=== PATIENT | female | born 1935 | race Caucasian/White ===

== ENCOUNTER 2019-02-21 01:46 | Inpatient (IN) ==
[2019-02-21 02:04] LABS: Basophils # 0.1 K/mm3 (0-0.2); Basophils % 0.2 % (0.1-2.0); Hematocrit 33.3 % (37.0-47.0); Hemoglobin 10.2 g/dL (12.2-16.2); Mean Corpuscular HGB Conc 30.7 g/dL (31.8-35.4); Mean Corpuscular Volume 89.6 fl (81-99); Mean Platelet Volume 7.6 fl (7.4-10.4); Monocytes # 1.1 K/mm3 (0.1-1.0); Monocytes % 3.7 % (1.7-9.3); Neutrophils # 25.8 K/mm3 (1.8-7.8); Platelet Count 403 K/mm3 (142-424); Red Blood Count 3.71 M/mm3 (4.20-5.40); Red Cell Distribution Width 14.6 % (11.5-17.5)
[2019-02-21 02:21] LABS: Alanine Aminotransferase 12 U/L (12-78); Albumin Level 2.1 gm/dL (3.4-5.0); Albumin/Globulin Ratio 0.4 (1.1-1.8); Alkaline Phosphatase 128 U/L (46-116); Anion Gap 16.7 mEq/L (5-15); Aspartate Amino Transferase 17 U/L (15-37); Bilirubin,Total 0.6 mg/dL (0.2-1.0); Blood Urea Nitrogen 27 mg/dL (7-18); Calcium 8.9 mg/dL (8.5-10.1); Carbon Dioxide 24 mmol/L (21.0-32.0); Chloride 94 mmol/L (98-107); Creatine Kinase 40 U/L (26-192); Globulin 4.9 gm/dl (1.3-3.2); Glucose 127 mg/dL (74-106); Sodium 131 mmol/L (136-145)
[2019-02-21 02:28] LABS: Microscopic, Urine URINE MICROSCOPIC (MICROSCOPIC)
[2019-02-21 02:29] LABS: C-Reactive Protein 33.6 mg/dL (0.0-0.9)
[2019-02-21 02:29] LABS: Appearance,Urine CLOUDY (Clear); Bilirubin,Urine Negative (Negative); Blood, Urine 3+ (Negative); Color,Urine YELLOW (Yellow); Glucose,Urine (UA) Negative (Negative); Ketones,Urine Negative (Negative); Leukocyte Esterase,Urine TRACE (Negative); Protein,Urine 2+ (Negative); Specific Gravity, Urine 1.025 (1.005-1.030)
[2019-02-21 02:32] LABS: Bacteria,Urine 4+ /lpf
--- NOTE | 2019-02-21 03:25 | Emergency Department Note ---
ED Disposition Clinical Impression: CKD (chronic kidney disease) stage 3, GFR 30-59 ml/min, Elevated erythrocyte sedimentation rate UTI (urinary tract infection) Qualifiers: Urinary tract infection type: site unspecified Hematuria presence: without hematuria Qualified Code(s): N39.0 - Urinary tract infection, site not specified Anemia Qualifiers: Anemia type: unspecified type Qualified Code(s): D64.9 - Anemia, unspecified Disposition: Admitted as Observation Condition on Discharge: Fair Referrals: Emir Maxwell MD [Primary Care Provider] - - Critical Care Critical Care Time: No Attestation: On 02/21/19, the high probability of a clinically significant, sudden or life threatening deterioration of the following system(s) required my full and direct attention, intervention and personal management. The time I documented below is in addition to time spent performing reported procedures but includes the following listed in this critical care notation. Medical Decision Making - Medical Records Medical records reviewed: Yes: I reviewed the patient's medical records. - Freedom Inquiry Pt receiving controlled substance: No Vital Signs: 02/21/19 01:46 02/21/19 02:14 02/21/19 03:13 Temperature 101.0 F H 103.5 F H Temperature Source Oral Rectal Pulse Rate [Right Radial] 101 H 93 H Respiratory Rate 20 18 Blood Pressure [Right Arm] 121/59 L 130/73 Blood Pressure Mean [Right Arm] 79 92 02 Sat by Pulse Oximetry 91 L 91 L Oxygen Delivery Method Room Air Room Air - Lab Data Lab results reviewed: Yes: I reviewed the patient's lab results. Lab Results 02/21/19 01:40: WBC 30.0 H*, RBC 3.71 L, Hgb 10.2 L, Hct 33.3 L, MCV 89.6, MCH 27.6, MCHC 30.7 L, RDW 14.6, Plt Count 403, MPV 7.6, Neut % (Auto) 86.0 H, Lymph % (Auto) 10.0, Pratt % (Auto) 3.7, Eos % (Auto) 0.0 L, Baso % (Auto) 0.2, Neut # (Auto) 25.8 H, Lymph # (Auto) 3.0, Pratt # (Auto) 1.1 H, Eos # (Auto) 0.0, Baso # (Auto) 0.1, Total Counted 100, Neutrophils % (Manual) 77 H, Band Neutrophils % 12.0 H, Lymphocytes % (Manual) 10, Monocytes % (Manual) 1 L, Platelet Estimate Normal, Hypochromasia 1+ 02/21/19 01:40: Sodium 131 L, Potassium 3.7, Chloride 94 L, Carbon Dioxide 24, Anion Gap 16.7 H, BUN 27 H, Creatinine 1.48 H, Estimated Creat Clear 28, Estimated GFR 33 L, Est GFR ( Amer) 40 L, Glucose 127 H, Calcium 8.9, Total Bilirubin 0.6, AST 17, ALT 12, Alkaline Phosphatase 128 H, Total Creatine Kinase 40, Troponin I < 0.02, C-Reactive Protein 33.6 H, Total Protein 7.0, Alb umin 2.1 L, Globulin 4.9 H, Albumin/Globulin Ratio 0.4 L 02/21/19 01:40: ESR > 140 H 02/21/19 02:06: Lactate 1.6 02/21/19 02:18: Urine Color Yellow, Urine Appearance Cloudy, Urine pH 6.0, Ur Specific [place] 1.025, Urine Protein 2+, Urine Glucose (UA) Negative, Urine Ketones Negative, Urine Blood 3+, Urine Nitrate Positive, Urine Bilirubin Negative, Urine Urobilinogen 1.0, Ur Leukocyte Esterase Trace, Urine WBC 3-5, Ur Squamous Epith Cells 3-5, Urine Bacteria 4+, Coarse Granular Casts 3-5 Result diagrams: 02/21/19 01:40 02/21/19 01:40 Orders (Tests/Meds): ED MEDICATIONS Generic Name Dose Route Start Last Admin Trade Name Freq PRN Reason Stop Dose Admin Sodium Chloride 1,000 mls @ 999 mls/hr 02/21/19 02:00 02/21/19 03:11 Sod Chlor 0.9% 1000ml Bag IV 02/21/19 03:00 999 mls/hr .Q1H1M IOANA Administration Ceftriaxone Sodium 1 gm/ 50 mls @ 100 mls/hr 02/21/19 03:30 02/21/19 03:24 Sodium Chloride IV 03/07/19 03:29 100 mls/hr Q24H IOANA Administration Protocol Discontinued Medications Generic Name Dose Route Start Last Admin Trade Name Freq PRN Reason Stop Dose Admin Acetaminophen 1,000 mg 02/21/19 01:55 02/21/19 02:23 Tylenol 500mg Tablet PO 02/21/19 01:56 1,000 mg ONCE ONE Administration ORDERS Category Date Time Status CT cervical spine wo con Stat Cat Scan 02/21/19 01:[address] head/brain wo con Stat Cat Scan 02/21/19 01:55 Taken XR chest portable Stat Exams 02/21/19 01:55 Taken XR pelvis 1-2V Stat Exams 02/21/19 01:55 Taken Blood Culture Stat Micro 02/21/19 02:06 Received Urine Culture Stat Micro 02/21/19 02:18 Received - Radiology Data #1 Image(s): Chest, Pelvis Image Reviewed: Yes I reviewed the patient's radiology image Preliminary Findings: Abnormal (possible pelvic fx ) - CT Data CT Scan: Head, C-Spine Time Received: 03:[address] Reviewed: Yes: I have viewed the radiologist's interpretation Preliminary Findings: No Fracture Seen Fever HPI - General Chief Complaint: Fever Stated Complaint: fever Time Seen by Provider: 02/21/19 02:00 Mode of Arrival: EMS Source of Information: Patient, Spouse, EMS, Medical Record Limitations: Physical Limitations Description of Symptoms (Recalled from ER Triage Doc. by RN): pt presents to ed with c/o fever and generalized weakness. ems responded to call at home this morning because patient had a fall, the assisted patient to chair and patient has not moved from the chair for 18 hours. pt also c/o "stiff neck." - History of Present Illness HPI Narrative: pt with fever and weakness which has progressed today - had fall earlier today - no cough or abd pain MD complaint: fever, weakness Onset (ago): day(s) Associated symptoms: denies other symptoms Treatments prior to arrival fever: none - Related Data Home Medications Medication Instructions Recorded Confirmed Aspirin [Ecotrin] 325 mg PO DAILY 10/31/18 02/21/19 Cholecalciferol (Vitamin D3) 1,000 unit PO DAILY 10/31/18 02/21/19 [Vitamin D3 1,000 Unit Cap] Metoprolol Succinate 25 mg PO BID 10/31/18 02/21/19 Omeprazole [Omeprazole 20mg 20 mg PO DAILY 10/31/18 02/21/19 Capsule] milk thistle 150 mg capsule 175 mg PO BID 11/01/18 02/21/19 Ascorbate Calcium [Vitamin C] 500 mg PO DAILY 01/08/19 02/21/19 Ferrous Sulfate [Ferrous Sulfate 325 mg PO DAILY 01/08/19 02/21/19 325mg Tablet] Gabapentin [Gabapentin 100mg Cap] 200 mg PO QHS 01/08/19 02/21/19 Lisinopril [Lisinopril 5mg 5 mg PO DAILY 01/08/19 02/21/19 Tablet] Fluticasone Propionate [Flonase 1 spray INTRANASAL DAILY 02/21/19 02/21/19 Allergy Relief NS] Allergies Allergy/AdvReac Type Severity Reaction Status Date / Time acetaminophen Allergy Severe Anaphylaxis Verified 02/21/19 01:54 [From Darvocet-N] propoxyphene Allergy Severe Anaphylaxis Verified 02/21/19 01:54 [From Darvocet-N] NSAIDS (Non-Steroidal AdvReac Verified 02/21/19 01:54 Anti-Inflamma [facility] History - Hepatitis A Screen Drug use history?: No High risk sexual behaviors?: No History of sexually transmitted infection?: No Currently employed?: No Childcare worker?: No Do you have indoor plumbing?: Yes Do you have electricity?: Yes Attestation statement:: This patient has been screened for Hepatitis A risk factors. I have reviewed the patient's past medical history: Yes Medical History: Reports:: Diabetes Mellitus Type 2, Gastroesophageal Reflux Disease(GERD), Hypertension Denies:: Cancer, Internal Pacemaker, MRSA, Pulmonary Embolism, Seizures, Transient Ischemic Attacks (TIA) Other Medical History: Reports: Arthritis. Denies: Blood Transfusion Reaction Laterality Cases: Right: Arthroscopy Hip, Total Hip Replacement, Bilateral: Arthroscopy Knee Other Surgeries: Yes: Tubal Ligation. No: Pacemaker Amputation: Yes Fractures: Yes (rt arm) Comment: left arm surgery,fx nose - Social History Smoking Status: Never smoker Alcohol Intake: never Substance Use Type: denies use Occupational Status: retired Housing: house Household Members: spouse Family Hx:: Diabetes, Heart Attack, Stroke, Hypertension ROS Obtained: Yes All systems reviewed & no additional complaints - Constitutional Constitutional: Reports fever(s), Reports weakness - Eyes Eyes: Denies change in vision - ENT Ears, Nose, Mouth, and Throat: Denies sore throat - Cardiovascular Cardiovascular: Denies chest pain - Respiratory Respiratory: No cough - Gastrointestinal Gastrointestingal: Denies: abdominal pain - Genitourinary Female Genitourinary: Denies hematuria - Musculoskeletal Musculoskeletal: Denies joint pain, Denies joint swelling - Integumentary/Breasts Skin/Breast: Denies rash - Neurologic Neurologic: Reports as per HPI, Denies focal weakness, Reports frequent falls, Denies seizure-like activity Physical Exam - General General appearance: alert - Head Head exam: normocephalic - Eye Eye exam: Present: PERRL, EOMI. Absent: scleral icterus - ENT ENT exam: Present: mucous membranes dry - Neck Neck exam: Present: trachea midline. Absent: full ROM, meningismus - Respiratory Respiratory exam: Present: other (dec bs bilat ). Absent: respiratory distress - Cardiovascular Cardiovascular exam: Present: regular rate, systolic murmur, +S4 - Abdominal Exam Abdominal exam: Present: soft. Absent: tenderness - Extremities Exam Extremities exam: Present: pedal edema. Absent: calf tenderness - Back Exam Back exam: Present: other (pelvis stable ) - Neurological Exam Neurological exam: Present: alert, CN II-XII intact - Psychiatric Psychiatric exam: Present: normal affect - Skin Skin exam: Absent: rash
[2019-02-21 03:30] LABS: Hypochromasia 1+; Lymphocytes % 10 % (10-50); Monocytes % 1 % (2-9); Neutrophils % 77 % (42-76); Total Cells Counted 100
[2019-02-21 05:50] LABS: Basophils % 0.1 % (0.1-2.0); Eosinophils % 0.1 % (0.1-12.0); Hemoglobin 9.4 g/dL (12.2-16.2); Lymphocytes # 2.2 K/mm3 (0.7-4.5); Lymphocytes % 8.4 % (10-50); Mean Corpuscular HGB Conc 31.3 g/dL (31.8-35.4); Mean Corpuscular Volume 89.6 fl (81-99); Mean Platelet Volume 8.3 fl (7.4-10.4); Monocytes # 1.3 K/mm3 (0.1-1.0); Monocytes % 4.9 % (1.7-9.3); Neutrophils # 23.1 K/mm3 (1.8-7.8); Neutrophils % 86.5 % (37.0-80.0); Platelet Count 355 K/mm3 (142-424); Red Blood Count 3.34 M/mm3 (4.20-5.40); Red Cell Distribution Width 14.7 % (11.5-17.5)
[2019-02-21 05:51] LABS: Hematocrit 29.9 % (37.0-47.0); White Blood Count 26.7 K/mm3 (4.8-10.8)
[2019-02-21 05:57] LABS: Anion Gap 16.8 mEq/L (5-15); Calcium 8.5 mg/dL (8.5-10.1)
--- NOTE | 2019-02-21 07:44 | Pharmacy Consult Notes ---
[facility] Pharmacy VTE Monitoring - Patient Demographics Admission date: 02/21/19 Report Date: 02/21/19 Time: 07:43 Allergies/Adverse Reactions: Patient Allergies acetaminophen [From Darvocet-N] Allergy (Severe, Verified 02/21/19 01:54) Anaphylaxis propoxyphene [From Darvocet-N] Allergy (Severe, Verified 02/21/19 01:54) Anaphylaxis NSAIDS (Non-Steroidal Anti-Inflamma Adverse Reaction (Verified 02/21/19 01:54) Height: 1.57 m Weight: 64.495 kg Patient Problems: Current Active Problems UTI (urinary tract infection) (Acute) Elevated erythrocyte sedimentation rate (Acute) Anemia (Acute) CKD (chronic kidney disease) stage 3, GFR 30-59 ml/min (Acute) - VTE Risk Labs: VTE Related Lab Results Hgb 9.4 g/dL (12.2-16.2) L 02/21/19 05:40 Hct 29.9 % (37.0-47.0) L 02/21/19 05:40 Plt Count 355 K/mm3 (142-424) 02/21/19 05:40 BUN 27 mg/dL (7-18) H 02/21/19 05:40 Creatinine 1.39 mg/dL (0.55-1.02) H 02/21/19 05:40 Estimated Creat Clear 30 mL/min (50-200) 02/21/19 05:40 VTE Score: 6 VTE Risk Level: Moderate Risk - Prophylaxis VTE Prophylaxis Ordered?: Yes Types of VTE Prophylaxis: TEDS Knee High Location of Applied Device: Bilateral Lower Extremeties - VTE Diagnosis Confirmed Treatment or plan recommended: Continue Current Treatment
--- NOTE | 2019-02-21 08:55 | History & Physical Report ---
*Admission Date: 02/21/19 *Chief complaint: fever *History of present illness: this wf with altered mental status and inc weakness and dec mobility with dec po intake dev fever and was brought to ed for evaal -pt was found to have uti and sirs and was admitted for ivf and abx - cultures pending - also pt has element of delerium as she is confused and dec mobility - [facility] History I have reviewed the patient's past medical history: Yes Medical History: Reports:: Diabetes Mellitus Type 2, Gastroesophageal Reflux Disease(GERD), Hypertension Denies:: Cancer, Internal Pacemaker, MRSA, Pulmonary Embolism, Seizures, Transient Ischemic Attacks (TIA) *Have you ever received a pneumonia vaccine?: Yes *Have you received a flu vaccine this season?: Yes Other Medical History: Reports: Arthritis. Denies: Blood Transfusion Reaction Laterality Cases: Right: Arthroscopy Hip, Total Hip Replacement, Bilateral: Arthroscopy Knee Other Surgeries: Yes: Tubal Ligation. No: Pacemaker Amputation: Yes Fractures: Yes (left arm) - *Social History Educational Level: Attended High School Smoking Status: Never smoker Alcohol Intake: never Substance Use Type: denies use *Occupational Status:: retired Housing: house Household Members: spouse *Travel in the last 8 weeks: None - Psychiatric History Expresses thoughts of harming self/others: None Suicide Plan Description: No Plan Family Hx:: Diabetes, Heart Attack, Stroke, Hypertension Review of Systems - Review of Systems Review of systems:: pertinent systems reviewed and negative unless documented below - Constitutional Reports fatigue, Reports fever(s), Reports weakness - Eyes Denies change in vision - ENT Reports dry mouth - *Cardiovascular Denies chest pain at rest - *Respiratory Denies cough - *Gastrointestinal Denies abdominal pain - *Genitourinary Denies blood in urine - *Musculoskeletal Reports joint pain, Reports neck pain, Denies joint swelling - Integumentary/Breasts Denies rash - *Neurologic Reports frequent falls, Reports weakness, Denies localized weakness, Denies seizure-like activity Meds Home Medications Medication Instructions Recorded Confirmed Type Aspirin [Ecotrin] 81 mg PO DAILY 10/31/18 02/21/19 History Cholecalciferol (Vitamin D3) 2,000 unit PO DAILY 10/31/18 02/21/19 History [Vitamin D3 1,000 Unit Cap] Metoprolol Succinate 25 mg PO BID 10/31/18 02/21/19 History Omeprazole [Omeprazole 20mg 20 mg PO DAILY 10/31/18 02/21/19 History Capsule] milk thistle 150 mg capsule 150 mg PO DAILY 11/01/18 02/21/19 History Ascorbate Calcium [Vitamin C] 500 mg PO DAILY 01/08/19 02/21/19 History Ferrous Sulfate [Ferrous Sulfate 325 mg PO DAILY 01/08/19 02/21/19 History 325mg Tablet] Gabapentin [Gabapentin 100mg Cap] 200 mg PO HS 01/08/19 02/21/19 History Lisinopril [Lisinopril 5mg 5 mg PO DAILY 01/08/19 02/21/19 History Tablet] Biotin 1 mg PO DAILY 02/21/19 02/21/19 History Fluticasone Propionate [Flonase 1 spray INTRANASAL DAILY 02/21/19 02/21/19 History Allergy Relief NS] Meloxicam 7.5 mg PO DIRECTED 02/21/19 02/21/19 History Non Formulary [Pt's Own Medication] 1 each PO DAILY 02/21/19 02/21/19 History Allergies Allergy/AdvReac Type Severity Reaction Status Date / Time acetaminophen Allergy Severe Anaphylaxis Verified 02/21/19 01:54 [From Darvocet-N] propoxyphene Allergy Severe Anaphylaxis Verified 02/21/19 01:54 [From Darvocet-N] NSAIDS (Non-Steroidal AdvReac Verified 02/21/19 01:54 Anti-Inflamma Exam Vital signs and Labs for Last 24 Hours: Temp Pulse Resp BP Pulse Ox 98.0 F 91 H 18 111/59 L 94 L 02/21/19 07:56 02/21/19 07:56 02/21/19 07:56 02/21/19 07:56 02/21/19 07:56 Laboratory Results - last 24 hr 02/21/19 01:40: WBC 30.0 H*, RBC 3.71 L, Hgb 10.2 L, Hct 33.3 L, MCV 89.6, MCH 27.6, MCHC 30.7 L, RDW 14.6, Plt Count 403, MPV 7.6, Neut % (Auto) 86.0 H, Lymph % (Auto) 10.0, Josephine % (Auto) 3.7, Eos % (Auto) 0.0 L, Baso % (Auto) 0.2, Neut # (Auto) 25.8 H, Lymph # (Auto) 3.0, Josephine # (Auto) 1.1 H, Eos # (Auto) 0.0, Baso # (Auto) 0.1, Total Counted 100, Neutrophils % (Manual) 77 H, Band Neutrophils % 12.0 H, Lymphocytes % (Manual) 10, Monocytes % (Manual) 1 L, Platelet Estimate Normal, Hypochromasia 1+ 02/21/19 01:40: Sodium 131 L, Potassium 3.7, Chloride 94 L, Carbon Dioxide 24, Anion Gap 16.7 H, BUN 27 H, Creatinine 1.48 H, Estimated Creat Clear 28, Estimated GFR 33 L, Est GFR ( Amer) 40 L, Glucose 127 H, Calcium 8.9, Total Bilirubin 0.6, AST 17, ALT 12, Alkaline Phosphatase 128 H, Total Creatine Kinase 40, Troponin I < 0.02, C-Reactive Protein 33.6 H, Total Protein 7.0, Albumin 2.1 L, Globulin 4.9 H, Albumin/Globulin Ratio 0.4 L 02/21/19 01:40: ESR > 140 H 02/21/19 02:06: Lactate 1.6 02/21/19 02:18: Urine Color Yellow, Urine Appearance Cloudy, Urine pH 6.0, Ur Specific [place] 1.025, Urine Protein 2+, Urine Glucose (UA) Negative, Urine Ketones Negative, Urine Blood 3+, Urine Nitrate Positive, Urine Bilirubin Negative, Urine Urobilinogen 1.0, Ur Leukocyte Esterase Trace, Urine WBC 3-5, Ur Squamous Epith Cells 3-5, Urine Bacteria 4+, Coarse Granular Casts 3-5 02/21/19 05:40: WBC 26.7 H*, RBC 3.34 L, Hgb 9.4 L, Hct 29.9 L, MCV 89.6, MCH 28.1, MCHC 31.3 L, RDW 14.7, Plt Count 355, MPV 8.3, Neut % (Auto) 86.5 H, Lymph % (Auto) 8.4 L, Josephine % (Auto) 4.9, Eos % (Auto) 0.1, Baso % (Auto) 0.1, Neut # (Auto) 23.1 H, Lymph # (Auto) 2.2, Josephine # (Auto) 1.3 H, Eos # (Auto) 0.0, Baso # (Auto) 0.0 02/21/19 05:40: Sodium 133 L, Potassium 3.8, Chloride 98, Carbon Dioxide 22, Anion Gap 16.8 H, BUN 27 H, Creatinine 1.39 H, Estimated Creat Clear 30, Estimated GFR 36 L, Est GFR ( Amer) 43 L, Glucose 136 H, Calcium 8.5 I & O for Last 24 hours: Intake & Output 02/18/19 02/19/19 02/20/19 02/21/19 11:59 11:59 11:59 11:59 Intake Total 1110 / 1110 Output Total 275 / 275 Balance 835 / 835 Weight 142 lb 3 oz - Constitutional no acute distress - *Routine HEENT Exam Head: Present: normocephalic Eye: Present: EOMI, PERRL ENT: Present: mucous membranes dry - *Routine Neck Exam Absent: JVD - *Routine Respiratory Exam Present: decreased breath sounds - *Routine Cardiovascular Exam Present: RRR, murmur, S4 - *Routine Abdominal Exam Present: soft - *Routine Extremities Exam Absent: calf tenderness - *Routine Skin Exam Present: intact - *Routine Neurological Exam Present: alert, CN II-XII intact, altered mental status - Routine Psychiatric Exam Present: normal affect Assessment and Plan (1) Cervical spondylosis with radiculopathy Current visit: Yes Status: Acute Category: Medical Code(s): M47.22 - Other spondylosis with radiculopathy, cervical region (2) UTI (urinary tract infection) Current visit: Yes Status: Acute Qualifiers: Urinary tract infection type: site unspecified Hematuria presence: without hematuria Qualified Code(s): N39.0 - Urinary tract infection, site not specified Category: Medical Code(s): N39.0 - Urinary tract infection, site not specified (3) Elevated erythrocyte sedimentation rate Current visit: Yes Status: Acute Category: Medical Code(s): R70.0 - Elevated erythrocyte sedimentation rate (4) Neuropathy Current visit: No Status: Acute Category: Medical Code(s): G62.9 - Polyneuropathy, unspecified (5) CKD (chronic kidney disease) stage 3, GFR 30-59 ml/min Current visit: Yes Status: Acute Category: Medical Code(s): N18.3 - Chronic kidney disease, stage 3 (moderate) (6) Foraminal stenosis of cervical region Current visit: Yes Status: Acute Category: Medical Code(s): M48.02 - Spinal stenosis, cervical region (7) Cervical facet joint syndrome Current visit: Yes Status: Acute Category: Medical Code(s): M47.812 - Spondylosis without myelopathy or radiculopathy, cervical region (8) Cervical stenosis of spinal canal Current visit: Yes Status: Acute Category: Medical Code(s): M48.02 - Spinal stenosis, cervical region (9) SIRS (systemic inflammatory response syndrome) Current visit: Yes Status: Acute Category: Medical Code(s): R65.10 - Systemic inflammatory response syndrome (SIRS) of non-infectious origin without acute organ dysfunction (10) Acute delirium Current visit: Yes Status: Acute Category: Medical Code(s): R41.0 - Disorientation, unspecified
--- NOTE | 2019-02-22 09:14 | Pharmacy Consult Notes ---
- Pharmacy Consult Date: 02/22/19 Time: 09:12 Referring provider: DR. DOUGHERTY Reason for Consult:: VANCOMYCIN DOSING Allergies and ADEs:: Allergies Allergy/AdvReac Type Severity Reaction Status Date / Time acetaminophen Allergy Severe Anaphylaxis Verified 02/21/19 01:54 [From Darvocet-N] propoxyphene Allergy Severe Anaphylaxis Verified 02/21/19 01:54 [From Darvocet-N] NSAIDS (Non-Steroidal AdvReac Verified 02/21/19 01:54 Anti-Inflamma Home Medications:: Home Medications Medication Instructions Recorded Confirmed Type Aspirin [Ecotrin] 81 mg PO DAILY 10/31/18 02/21/19 History Cholecalciferol (Vitamin D3) 2,000 unit PO DAILY 10/31/18 02/21/19 History [Vitamin D3 1,000 Unit Cap] Metoprolol Succinate 25 mg PO BID 10/31/18 02/21/19 History Omeprazole [Omeprazole 20mg 20 mg PO DAILY 10/31/18 02/21/19 History Capsule] milk thistle 150 mg capsule 150 mg PO DAILY 11/01/18 02/21/19 History Ascorbate Calcium [Vitamin C] 500 mg PO DAILY 01/08/19 02/21/19 History Ferrous Sulfate [Ferrous Sulfate 325 mg PO DAILY 01/08/19 02/21/19 History 325mg Tablet] Gabapentin [Gabapentin 100mg Cap] 200 mg PO HS 01/08/19 02/21/19 History Lisinopril [Lisinopril 5mg 5 mg PO DAILY 01/08/19 02/21/19 History Tablet] Biotin 1 mg PO DAILY 02/21/19 02/21/19 History Fluticasone Propionate [Flonase 1 spray INTRANASAL DAILY 02/21/19 02/21/19 History Allergy Relief NS] Meloxicam 7.5 mg PO DIRECTED 02/21/19 02/21/19 History Non Formulary [Pt's Own Medication] 1 each PO DAILY 02/21/19 02/21/19 History Height: 1.57 m Weight: 64.495 kg Medical History: Reports:: Diabetes Mellitus Type 2, Gastroesophageal Reflux Disease(GERD), Hypertension Denies:: Cancer, Internal Pacemaker, MRSA, Pulmonary Embolism, Seizures, Transient Ischemic Attacks (TIA) Assessment and Plan (1) Cervical spondylosis with radiculopathy Current visit: Yes Status: Acute Category: Medical Code(s): M47.22 - Other spondylosis with radiculopathy, cervical region (2) UTI (urinary tract infection) Current visit: Yes Status: Acute Qualifiers: Urinary tract infection type: site unspecified Hematuria presence: without hematuria Qualified Code(s): N39.0 - Urinary tract infection, site not spec ified Category: Medical Code(s): N39.0 - Urinary tract infection, site not specified (3) Elevated erythrocyte sedimentation rate Current visit: Yes Status: Acute Category: Medical Code(s): R70.0 - Elevated erythrocyte sedimentation rate (4) Neuropathy Current visit: No Status: Acute Category: Medical Code(s): G62.9 - Polyneuropathy, unspecified (5) CKD (chronic kidney disease) stage 3, GFR 30-59 ml/min Current visit: Yes Status: Acute Category: Medical Code(s): N18.3 - Chronic kidney disease, stage 3 (moderate) (6) Foraminal stenosis of cervical region Current visit: Yes Status: Acute Category: Medical Code(s): M48.02 - Spinal stenosis, cervical region (7) Cervical facet joint syndrome Current visit: Yes Status: Acute Category: Medical Code(s): M47.812 - Spondylosis without myelopathy or radiculopathy, cervical region (8) Cervical stenosis of spinal canal Current visit: Yes Status: Acute Category: Medical Code(s): M48.02 - Spinal stenosis, cervical region (9) SIRS (systemic inflammatory response syndrome) Current visit: Yes Status: Acute Category: Medical Code(s): R65.10 - Systemic inflammatory response syndrome (SIRS) of non-infectious origin without acute organ dysfunction - Assessment and plan all Dx Assessment and Plan for all problems:: BASED ON PATIENT FACTORS, RECOMMEND VANCOMYCIN 1 GM IV Q36H. WILL OBTAIN VANCOMYCIN TROUGH LEVEL PRIOR TO 3RD DOSE. PHARMACY WILL FOLLOW DAILY AND ADJUST APPROPRIATE.
--- NOTE | 2019-02-22 10:28 | Progress Note ---
Internal Medicine - PN: Subj *Date: 02/22/19 *Time: 10:25 Interval history: looks better this am but has positive blood and urine culture - will cover with abx at this time as rec by phar Exam Vital signs and Labs for Last 24 Hours: Temp Pulse Resp BP Pulse Ox 97.5 F L 93 H 20 118/72 96 02/22/19 08:00 02/22/19 08:00 02/22/19 08:00 02/22/19 08:00 02/22/19 08:00 Laboratory Results - last 24 hr 02/21/19 02:18: Urine Color Yellow, Urine Appearance Cloudy, Urine pH 6.0, Ur Specific [place] 1.025, Urine Protein 2+, Urine Glucose (UA) Negative, Urine Ketones Negative, Urine Blood 3+, Urine Nitrate Positive, Urine Bilirubin Negative, Urine Urobilinogen 1.0, Ur Leukocyte Esterase Trace, Urine WBC 3-5, Ur Squamous Epith Cells 3-5, Urine Bacteria 4+, Coarse Granular Casts 3-5 I & O for Last 24 hours: Intake & Output 02/19/19 02/20/19 02/21/19 02/22/19 11:59 11:59 11:59 11:59 Intake Total 1110 / 1110 2874 / 2874 Output Total 275 / 275 775 / 775 Balance 835 / 835 2099 / 2099 Weight 142 lb 3 oz 142 lb 2.994 oz Microbiology Reports for the Last 24 Hours: Microbiology 02/21/19 02:18 Urine,Clean Catch Urine Culture - Preliminary Gram Negative Rods 02/21/19 02:06 Blood Blood Culture - Preliminary - Constitutional no acute distress - *Routine HEENT Exam Head: Present: normocephalic Eye: Present: EOMI, PERRL ENT: Present: mucous membranes dry - *Routine Neck Exam Present: supple - *Routine Respiratory Exam Present: CTA bilaterally - *Routine Cardiovascular Exam Present: RRR - *Routine Abdominal Exam Present: soft - *Routine Extremities Exam Absent: calf tenderness - *Routine Skin Exam Present: intact - *Routine Neurological Exam Present: CN II-XII intact more alert today - Routine Psychiatric Exam Present: normal affect Assessment and Plan (1) Cervical spondylosis with radiculopathy Current visit: Yes Status: Acute Category: Medical Code(s): M47.22 - Other spondylosis with radiculopathy, cervical region (2) UTI (urinary tract infection) Current visit: Yes Status: Acute Qualifiers: Urinary tract infection type: site unspecified Hematuria presence: without hematuria Qualified Code(s): N39.0 - Urinary tract infection, site not specified Category: Medical Code(s): N39.0 - Urinary tract infection, site not specified (3) Elevated erythrocyte sedimentation rate Current visit: Yes Status: Acute Category: Medical Code(s): R70.0 - Elevated erythrocyte sedimentation rate (4) Neuropathy Current visit: No Status: Acute Category: Medical Code(s): G62.9 - Polyneuropathy, unspecified (5) CKD (chronic kidney disease) stage 3, GFR 30-59 ml/min Current visit: Yes Status: Acute Category: Medical Code(s): N18.3 - Chronic kidney disease, stage 3 (moderate) (6) Foraminal stenosis of cervical region Current visit: Yes Status: Acute Category: Medical Code(s): M48.02 - Spinal stenosis, cervical region (7) Cervical facet joint syndrome Current visit: Yes Status: Acute Category: Medical Code(s): M47.812 - Spondylosis without myelopathy or radiculopathy, cervical region (8) Cervical stenosis of spinal canal Current visit: Yes Status: Acute Category: Medical Code(s): M48.02 - Spinal stenosis, cervical region (9) SIRS (systemic inflammatory response syndrome) Current visit: Yes Status: Acute Category: Medical Code(s): R65.10 - Systemic inflammatory response syndrome (SIRS) of non-infectious origin without acute organ dysfunction (10) Acute delirium Current visit: Yes Status: Acute Category: Medical Code(s): R41.0 - Disorientation, unspecified
[2019-02-22 11:24] LABS: Basophils # 0.1 K/mm3 (0-0.2); Basophils % 0.2 % (0.1-2.0); Eosinophils % 0.1 % (0.1-12.0); Hematocrit 30.2 % (37.0-47.0); Hemoglobin 9.2 g/dL (12.2-16.2); Lymphocytes # 1.7 K/mm3 (0.7-4.5); Lymphocytes % 6.2 % (10-50); Mean Corpuscular HGB Conc 30.6 g/dL (31.8-35.4); Mean Corpuscular Volume 93.8 fl (81-99); Mean Platelet Volume 8.7 fl (7.4-10.4); Monocytes # 0.7 K/mm3 (0.1-1.0); Monocytes % 2.6 % (1.7-9.3); Neutrophils # 25.4 K/mm3 (1.8-7.8); Platelet Count 327 K/mm3 (142-424); Red Blood Count 3.21 M/mm3 (4.20-5.40); Red Cell Distribution Width 14.7 % (11.5-17.5); White Blood Count 27.9 K/mm3 (4.8-10.8)
[2019-02-22 11:42] LABS: Anion Gap 14.4 mEq/L (5-15); Calcium 8.5 mg/dL (8.5-10.1)
[2019-02-22 16:03] LABS: Hypochromasia 1+; Lymphocytes % 5 % (10-50); Monocytes % 1 % (2-9); Myelocytes % 1 (0-1); Neutrophils % 76 % (42-76); Total Cells Counted 100
--- NOTE | 2019-02-23 10:34 | Consult Report ---
*Admission Date: 02/21/19 *Reason for consult:: Abscess *History of present illness: Patient is an 84-year-old white female who had presented to the emergency department a couple of days ago with altered mental status and findings of systemic inflammatory spots syndrome. She was admitted and medical treatment was initiated. Today it was noted that she had purulent drainage from left posterior perineal wound which was quite foul-smelling. Surgical consultation was obtained. Review of Systems - Review of Systems Review of systems:: pertinent systems reviewed and negative unless documented below - *Neurologic Reports frequent falls, Reports weakness, Denies localized weakness, Denies seizure-like activity [facility] History Medical History: Reports:: Diabetes Mellitus Type 2, Gastroesophageal Reflux Disease(GERD), Hypertension Denies:: Cancer, Internal Pacemaker, MRSA, Pulmonary Embolism, Seizures, Transient Ischemic Attacks (TIA) *Have you ever received a pneumonia vaccine?: Yes *Have you received a flu vaccine this season?: Yes Other Medical History: Reports: Arthritis. Denies: Blood Transfusion Reaction Laterality Cases: Right: Arthroscopy Hip, Total Hip Replacement, Bilateral: Arthroscopy Knee Other Surgeries: Yes: Tubal Ligation. No: Pacemaker Amputation: Yes Fractures: Yes (left arm) - *Social History Educational Level: Attended High School Smoking Status: Never smoker Alcohol Intake: never Substance Use Type: denies use *Occupational Status:: retired Housing: house Household Members: spouse *Travel in the last 8 weeks: None - Psychiatric History Expresses thoughts of harming self/others: None Suicide Plan Description: No Plan Family Hx:: Diabetes, Heart Attack, Stroke, Hypertension Meds Home Medications Medication Instructions Recorded Confirmed Type Aspirin [Ecotrin] 81 mg PO DAILY 10/31/18 02/21/19 History Cholecalciferol (Vitamin D3) 2,000 unit PO DAILY 10/31/18 02/21/19 History [Vitamin D3 1,000 Unit Cap] Metoprolol Succinate 25 mg PO BID 10/31/18 02/21/19 History Omeprazole [Omeprazole 20mg 20 mg PO DAILY 10/31/18 02/21/19 History Capsule] milk thistle 150 mg capsule 150 mg PO DAILY 11/01/18 02/21/19 History Ascorbate Calcium [Vitamin C] 500 mg PO DAILY 01/08/19 02/21/19 History Ferrous Sulfate [Ferrous Sulfate 325 mg PO DAILY 01/08/19 02/21/19 History 325mg Tablet] Gabapentin [Gabapentin 100mg Cap] 200 mg PO HS 01/08/19 02/21/19 History Lisinopril [Lisinopril 5mg 5 mg PO DAILY 01/08/19 02/21/19 History Tablet] Biotin 1 mg PO DAILY 02/21/19 02/21/19 History Fluticasone Propionate [Flonase 1 spray INTRANASAL DAILY 02/21/19 02/21/19 History Allergy Relief NS] Meloxicam 7.5 mg PO DIRECTED 02/21/19 02/21/19 History Non Formulary [Pt's Own Medication] 1 each PO DAILY 02/21/19 02/21/19 History Allergies Allergy/AdvReac Type Severity Reaction Status Date / Time acetaminophen Allergy Severe Anaphylaxis Verified 02/21/19 01:54 [From Darvocet-N] propoxyphene Allergy Severe Anaphylaxis Verified 02/21/19 01:54 [From Darvocet-N] NSAIDS (Non-Steroidal AdvReac Verified 02/21/19 01:54 Anti-Inflamma Exam Vital signs and Labs for Last 24 Hours: Temp Pulse Resp BP Pulse Ox 98.6 F 104 H 18 113/44 L 93 L 02/23/19 08:00 02/23/19 08:00 02/23/19 08:00 02/23/19 08:00 02/23/19 08:00 Laboratory Results - last 24 hr 02/22/19 11:08: WBC 27.9 H*, RBC 3.21 L, Hgb 9.2 L, Hct 30.2 L, MCV 93.8, MCH 28.7, MCHC 30.6 L, RDW 14.7, Plt Count 327, MPV 8.7, Neut % (Auto) 91.0 H, Lymph % (Auto) 6.2 L, [place] % (Auto) 2.6, Eos % (Auto) 0.1, Baso % (Auto) 0.2, Neut # (Auto) 25.4 H, Lymph # (Auto) 1.7, [place] # (Auto) 0.7, Eos # (Auto) 0.0, Baso # (Auto) 0.1, Total Counted 100, Neutrophils % (Manual) 76, Band Neutrophils % 17.0 H, Lymphocytes % (Manual) 5 L, Monocytes % (Manual) 1 L, Myelocytes % 1, Platelet Estimate Normal, Hypochromasia 1+ 02/22/19 11:08: Sodium 134 L, Potassium 3.4 L, Chloride 101, Carbon Dioxide 22, Anion Gap 14.4, BUN 32 H, Creatinine 1.67 H D, Estimated Creat Clear 25, Estimated GFR 29 L, Est GFR ( Amer) 35 L, Glucose 132 H, Calcium 8.5 02/22/19 22:10: Urine Color Yellow, Urine Appearance Clear, Urine pH 5.5, Ur Specific [place] 1.010, Urine Protein 1+, Urine Glucose (UA) Negative, Urine Ketones Negative, Urine Blood 3+, Urine Nitrate Negative, Urine Bilirubin Negative, Urine Urobilinogen 0.2, Ur Leukocyte Esterase Trace, Urine RBC 5-10, Urine WBC 3-5, Ur Squamous Epith Cells 5-10, Urine Bacteria 1+ I & O for Last 24 hours: Intake & Output 02/20/19 02/21/19 02/22/19 02/23/19 11:59 11:59 11:59 11:59 Intake Total 1110 / 1110 2874 / 2874 2941 / 2941 Output Total 275 / 275 775 / 775 300 / 300 Balance 835 / 835 2099 / 2099 2641 / 2641 Weight 142 lb 3 oz 142 lb 2.994 oz 156 lb 5 oz Microbiology Reports for the Last 24 Hours: Microbiology 02/23/19 03:24 Buttock - Abscess Gram Stain - Final 02/21/19 02:18 Urine,Clean Catch Urine Culture - Final Escherichia coli 02/22/19 00:22 Urine,[place] Urine Culture - Preliminary NO GROWTH AFTER 24 HOURS 02/21/19 02:06 Blood Blood Culture - Preliminary NO GROWTH AFTER 48 HOURS 02/21/19 02:06 Blood Blood Culture - Preliminary - *Routine HEENT Exam Head: Present: normocephalic Eye: Present: EOMI, PERRL ENT: Present: mucous membranes moist - *Routine Neck Exam Present: supple. Absent: lymphadenopathy - *Routine Respiratory Exam Present: CTA bilaterally - *Routine Cardiovascular Exam Present: RRR - *Routine Abdominal Exam Present: soft, normoactive bowel sounds. Absent: tenderness - *Routine Extremities Exam Absent: cyanosis, clubbing, edema - *Routine Skin Exam Present: rash Comments: In the left posterior perineal region and the perineal area there is significant amount of edema with some induration and market thickening. There is approximately a 2 cm wound which is draining thin very foul-smelling fluid. This is consistent with probable necrotizing infection. - *Routine Neurological Exam Present: alert, oriented X3 - Detailed Eye Exam Eyelids: Left normal inspection Results - Labs 02/22/19 11:08 02/22/19 11:08 Laboratory Results - last 24 hr 02/22/19 11:08: WBC 27.9 H*, RBC 3.21 L, Hgb 9.2 L, Hct 30.2 L, MCV 93.8, MCH 28.7, MCHC 30.6 L, RDW 14.7, Plt Count 327, MPV 8.7, Neut % (Auto) 91.0 H, Lymph % (Auto) 6.2 L, [place] % (Auto) 2.6, Eos % (Auto) 0.1, Baso % (Auto) 0.2, Neut # (Auto) 25.4 H, Lymph # (Auto) 1.7, [place] # (Auto) 0.7, Eos # (Auto) 0.0, Baso # (Auto) 0.1, Total Counted 100, Neutrophils % (Manual) 76, Band Neutrophils % 17.0 H, Lymphocytes % (Manual) 5 L, Monocytes % (Manual) 1 L, Myelocytes % 1, Platelet Estimate Normal, Hypochromasia 1+ 02/22/19 11:08: Sodium 134 L, Potassium 3.4 L, Chloride 101, Carbon Dioxide 22, Anion Gap 14.4, BUN 32 H, Creatinine 1.67 H D, Estimated Creat Clear 25, Estimated GFR 29 L, Est GFR ( Amer) 35 L, Glucose 132 H, Calcium 8.5 02/22/19 22:10: Urine Color Yellow, Urine Appearance Clear, Urine pH 5.5, Ur Specific [place] 1.010, Urine Protein 1+, Urine Glucose (UA) Negative, Urine Ketones Negative, Urine Blood 3+, Urine Nitrate Negative, Urine Bilirubin Negative, Urine Urobilinogen 0.2, Ur Leukocyte Esterase Trace, Urine RBC 5-10, Urine WBC 3-5, Ur Squamous Epith Cells 5-10, Urine Bacteria 1+ Assessment and Plan (1) Cervical spondylosis with radiculopathy Current visit: Yes Status: Acute Category: Medical Code(s): M47.22 - Other spondylosis with radiculopathy, cervical region (2) UTI (urinary tract infection) Current visit: Yes Status: Acute Qualifiers: Urinary tract infection type: site unspecified Hematuria presence: without hematuria Qualified Code(s): N39.0 - Urinary tract infection, site not specified Category: Medical Code(s): N39.0 - Urinary tract infection, site not specified (3) Elevated erythrocyte sedimentation rate Current visit: Yes Status: Acute Category: Medical Code(s): R70.0 - Elevated erythrocyte sedimentation rate (4) Neuropathy Current visit: No Status: Acute Category: Medical Code(s): G62.9 - Polyneuropathy, unspecified (5) CKD (chronic kidney disease) stage 3, GFR 30-59 ml/min Current visit: Yes Status: Acute Category: Medical Code(s): N18.3 - Chronic kidney disease, stage 3 (moderate) (6) Foraminal stenosis of cervical region Current visit: Yes Status: Acute Category: Medical Code(s): M48.02 - Spinal stenosis, cervical region (7) Cervical facet joint syndrome Current visit: Yes Status: Acute Category: Medical Code(s): M47.812 - Spondylosis without myelopathy or radiculopathy, cervical region (8) Cervical stenosis of spinal canal Current visit: Yes Status: Acute Category: Medical Code(s): M48.02 - Spinal stenosis, cervical region (9) SIRS (systemic inflammatory response syndrome) Current visit: Yes Status: Acute Category: Medical Code(s): R65.10 - Systemic inflammatory response syndrome (SIRS) of non-infectious origin without acute organ dysfunction (10) Acute delirium Current visit: Yes Status: Acute Category: Medical Code(s): R41.0 - Disorientation, unspecified - Assessment and plan all Dx Assessment and Plan for all problems:: Patient has evidence of significant soft tissue infection of the andre-ictal and perineal region with evidence of possible necrotizing infection. Plan was made for incision and drainage and debridement. This to be done as soon as possible. Pending the extent of the underlying involvement she could require transfer for more definitive care.
[2019-02-23 10:44] LABS: Anion Gap 13.5 mEq/L (5-15); Calcium 8.7 mg/dL (8.5-10.1)
--- NOTE | 2019-02-23 12:08 | Progress Note ---
Internal Medicine - PN: Subj *Date: 02/24/19 *Time: 06:01 Interval history: has swelling and drainage from lower lumbar coccyx area -prob abscess - will need surg consult Exam Vital signs and Labs for Last 24 Hours: Temp Pulse Resp BP Pulse Ox 98.6 F 104 H 18 113/44 L 93 L 02/23/19 08:00 02/23/19 08:00 02/23/19 08:00 02/23/19 08:00 02/23/19 08:00 Laboratory Results - last 24 hr 02/22/19 11:08: Total Counted 100, Neutrophils % (Manual) 76, Band Neutrophils % 17.0 H, Lymphocytes % (Manual) 5 L, Monocytes % (Manual) 1 L, Myelocytes % 1, Platelet Estimate Normal, Hypochromasia 1+ 02/22/19 22:10: Urine Color Yellow, Urine Appearance Clear, Urine pH 5.5, Ur Specific [place] 1.010, Urine Protein 1+, Urine Glucose (UA) Negative, Urine Ketones Negative, Urine Blood 3+, Urine Nitrate Negative, Urine Bilirubin Negative, Urine Urobilinogen 0.2, Ur Leukocyte Esterase Trace, Urine RBC 5-10, Urine WBC 3-5, Ur Squamous Epith Cells 5-10, Urine Bacteria 1+ 02/23/19 10:23: Sodium 132 L, Potassium 3.5, Chloride 101, Carbon Dioxide 21, Anion Gap 13.5, BUN 34 H, Creatinine 1.71 H, Estimated Creat Clear 26, Estimated GFR 28 L, Est GFR ( Amer) 34 L, Glucose 112 H, Calcium 8.7 I & O for Last 24 hours: Intake & Output 02/21/19 02/22/19 02/23/19 02/24/19 11:59 11:59 11:59 11:59 Intake Total 1110 / 1110 2874 / 2874 2941 / 2941 Output Total 275 / 275 775 / 775 300 / 300 Balance 835 / 835 2099 / 2099 2641 / 2641 Weight 142 lb 3 oz 142 lb 2.994 oz 156 lb 5 oz Microbiology Reports for the Last 24 Hours: Microbiology 02/21/19 02:06 Blood Blood Culture - Preliminary 02/23/19 03:24 Buttock - Abscess Gram Stain - Final 02/21/19 02:18 Urine,Clean Catch Urine Culture - Final Escherichia coli 02/22/19 00:22 Urine,[place] Urine Culture - Preliminary NO GROWTH AFTER 24 HOURS 02/21/19 02:06 Blood Blood Culture - Preliminary NO GROWTH AFTER 48 HOURS - Constitutional no acute distress - *Routine HEENT Exam Head: Present: normocephalic Eye: Present: EOMI, PERRL ENT: Present: mucous membranes dry - *Routine Neck Exam Absent: JVD - *Routine Respiratory Exam Present: decreased breath sounds - *Routine Cardiovascular Exam Present: RRR, murmur - *Routine Abdominal Exam Present: soft - *Routine Exam External: Present: swelling Perineal: Present: induration, tenderness Comments: possible abscess - *Routine Extremities Exam Absent: calf tenderness - *Routine Skin Exam Comments: possible sacral abscess - *Routine Neurological Exam Present: alert, CN II-XII intact - Routine Psychiatric Exam Present: normal affect Assessment and Plan (1) Cervical spondylosis with radiculopathy Current visit: Yes Status: Acute Category: Medical Code(s): M47.22 - Other spondylosis with radiculopathy, cervical region (2) UTI (urinary tract infection) Current visit: Yes Status: Acute Qualifiers: Urinary tract infection type: site unspecified Hematuria presence: without hematuria Qualified Code(s): N39.0 - Urinary tract infection, site not specified Category: Medical Code(s): N39.0 - Urinary tract infection, site not specified (3) Elevated erythrocyte sedimentation rate Current visit: Yes Status: Acute Category: Medical Code(s): R70.0 - Elevated erythrocyte sedimentation rate (4) Neuropathy Current visit: No Status: Acute Category: Medical Code(s): G62.9 - Polyneuropathy, unspecified (5) CKD (chronic kidney disease) stage 3, GFR 30-59 ml/min Current visit: Yes Status: Acute Category: Medical Code(s): N18.3 - Chronic kidney disease, stage 3 (moderate) (6) Foraminal stenosis of cervical region Current visit: Yes Status: Acute Category: Medical Code(s): M48.02 - Spinal stenosis, cervical region (7) Cervical facet joint syndrome Current visit: Yes Status: Acute Category: Medical Code(s): M47.812 - Spondylosis without myelopathy or radiculopathy, cervical region (8) Cervical stenosis of spinal canal Current visit: Yes Status: Acute Category: Medical Code(s): M48.02 - Spinal stenosis, cervical region (9) SIRS (systemic inflammatory response syndrome) Current visit: Yes Status: Acute Category: Medical Code(s): R65.10 - Systemic inflammatory response syndrome (SIRS) of non-infectious origin without acute organ dysfunction (10) Acute delirium Current visit: Yes Status: Acute Category: Medical Code(s): R41.0 - Disorientation, unspecified (11) Necrotizing fasciitis Current visit: Yes Status: Acute Category: Medical Code(s): M72.6 - Necrotizing fasciitis
--- NOTE | 2019-02-23 12:17 | Operative Note ---
Date of procedure: 02/23/19 Pre-op Diagnosis:: Perineal abscess Post-op Diagnosis:: Complex deep ischiorectal abscess Procedure performed:: Incision and drainage and debridement of complex deep issue rectal abscess Surgeon:: Drake Gray MD ABLE BODIED WATCHMAN:: Antonino Munoz Anesthesia: GETA Estimated blood loss (mL): 25 Clinical Note:: Patient is an 84-year-old white female. She was admitted to the hospital for inpatient care after she presented to the emergency department about 48 hours ago with fevers and signs of systemic inflammatory response syndrome with a leukocytosis of 30,000. Today she was found to have an area of very foul- smelling liquid drainage from the left perineum. Surgical consultation was obtained. Patient was seen and examined and found to have evidence of possible regional necrotizing infection possibly due to perirectal abscess. Arrangements were made for emergent operative intervention. Operative findings:: Necrotizing focal infection of the left perineal and gluteal region traversing deep consistent with complex ischio rectal abscess. Operative note:: Consent was obtained and patient was taken emergently to the operating room. General anesthesia was induced. She was positioned in lithotomy position. The open wound was probed. There was some foul-smelling thin liquid which exuded from the wound. This was sent for culture. Probing of the wound revealed it to track in the subcutaneous plane towards the posterior rectum quite some distance and a small amount of distance to the left perineum. There was not a significant amount of thick pus but some thin fluid and minor tissue necrosis. The wound tracked posterior to the anal region and a counterincision was made. Probing of the wound revealed it to traverse deeply in the posterior ischio rectal plane. The bridge of tissue between the spontaneously open wound and the counterincision was opened with electrocautery ultimately. [place] anoscope was inserted to evaluate the rectum. There is large amount of pasty soft stool present which somewhat obscured visualization beyond the distal rectum. Wound was then irrigated with approximately 6 L of saline pulsatile irrigation using the Pulsavac device. Wound was packed with a saline moistened Kerlix. Clean dry sterile dressing was applied. Is unclear as to the etiology or the definitive extent of the infection. This may be perirectal abscess which had progressed to an issue rectal abscess with sepsis and systemic inflammatory response syndrome. I do agree with CT scan to evaluate the pelvis for possible intrapelvic underlying etiology. Patient could require transfer to tertiary facility for definitive care. Condition: stable Disposition: PACU Specimens:: Cultures Complications:: None immediately apparent
--- NOTE | 2019-02-23 12:34 | Progress Note ---
[facility] Anesthesia Checklist - Patient Identification Patient Identification: Arm Band - Structural Data Admitted From: Inpatient Planned Operative Procedure/s: I&D perirectal abscess Consent for Planned Operative Procedure(s) Verified: Yes Verified Documents: Surgical Consent, History and Physical - NPO Status Verified Time NPO: 00:00 - Additional verifications Anesthesia Reactions: No Hx Blood Transfusions: Yes Blood Transfusion Reaction: No - Airway Assessment C-Spine Mobility Assessed: Yes (mp2) TMJ Mobility Assessed: Yes Dentition: Edentulous - Neurological Assessment Level of Consciousness: Awake, Alert - Anesthesia Plan Anesthesia Risk discussed: Yes Anesthesia Plan: Verified ASA Class: III Anesthesia Type: General [facility] History I have reviewed the patient's past medical history: Yes Medical History: Reports:: Diabetes Mellitus Type 2, Gastroesophageal Reflux Disease(GERD), Hypertension Denies:: Cancer, Internal Pacemaker, MRSA, Pulmonary Embolism, Seizures, Transient Ischemic Attacks (TIA) *Have you ever received a pneumonia vaccine?: Yes *Have you received a flu vaccine this season?: Yes Other Medical History: Reports: Arthritis. Denies: Blood Transfusion Reaction Laterality Cases: Right: Arthroscopy Hip, Total Hip Replacement, Bilateral: Arthroscopy Knee Other Surgeries: Yes: Tubal Ligation. No: Pacemaker Amputation: Yes Fractures: Yes (left arm) - *Social History Educational Level: Attended High School Smoking Status: Never smoker Alcohol Intake: never Substance Use Type: denies use *Occupational Status:: retired Housing: house Household Members: spouse *Travel in the last 8 weeks: None - Psychiatric History Expresses thoughts of harming self/others: None Suicide Plan Description: No Plan Family Hx:: Diabetes, Heart Attack, Stroke, Hypertension
--- NOTE | 2019-02-23 12:38 | Progress Note ---
[facility] Anesthesia Record Part II Discharge Time: 12:55 Destination: 2nd floor PACU nurse assessment reviewed?: Yes Patient Condition:: Good Anesthesia Complications:: None Swallowing reflex intact?: Yes Cyanosis?: No
--- NOTE | 2019-02-23 12:38 | Progress Note ---
[facility] Anesthesia Record Part I Intake, IV Amount: 800 Estimated blood loss (mL): 10 Urine output (mL): 400 Blood Pressure: 95/50 SaO2: 95 Pulse Rate: 100 Respiratory Rate: 16 Temperature: 98.9 F Patient is:: Drowsy, Stable Stable to PACU at:: 12:25 Comments:: After hooking pt up to monitors in OR prior to procedure, pt is noted to be in rapid Afib with HR 140-180. Discussed risks/benefits along with urgency/emergence of situation and decision was made to proceed with operation and to consult cardiology after. At 1135 pt converted back to normal sinus rhythm. Dr. Gray aware of situation.
--- NOTE | 2019-02-23 14:28 | Consult Report ---
History of Present Illness Consult date: 02/23/19 Requesting physician: Emir Maxwell Consult reason: atrial fibrillation Chief complaint: Heart racing Additional Medical History:: 1. Diabetes 2. GERD 3. Hypertension History of present illness: This is an 84-year-old white female who was admitted to the hospital due to mental status changes and progressively worsening weakness. The patient was found to have an abscess in her perineal area. The patient was taken to surgery today for an I&D with debridement of the area. At the beginning of her surgical procedure, the patient went into atrial fibrillation with RVR and a heart rate of 180. The patient spontaneously converted back to sinus rhythm on her own with no interventions. The patient tolerated surgery well and had no further episodes of atrial fibrillation. She denies any chest pain or pressure. She denies any shortness of breath or edema. But does note that she is occasionally short of breath. But none at this time. She denies any fever, chills, nausea, vomiting, diarrhea, PND or orthopnea. She does report that she previously had fevers but none today. She denies any racing of the heart. She does note that in the past she has had palpitations and been told she has extra beats of the heart for which she is being treated with metoprolol. She has not had any metoprolol since being admitted to the hospital, she states she has been without the metoprolol for 4 days. She does report a history of hypertension and diabetes. She denies any coronary artery disease, [place] or hyperlipidemia. She denies a history of tobacco use. She does state that she has a brother who had significant coronary disease and diabetes. [facility] History I have reviewed the patient's past medical history: Yes Medical History: Reports:: Diabetes Mellitus Type 2, Gastroesophageal Reflux Disease(GERD), Hypertension Denies:: Cancer, Internal Pacemaker, MRSA, Pulmonary Embolism, Seizures, Transient Ischemic Attacks (TIA) *Have you ever received a pneumonia vaccine?: Yes *Have you received a flu vaccine this season?: Yes Other Medical History: Reports: Arthritis. Denies: Blood Transfusion Reaction Laterality Cases: Right: Arthroscopy Hip, Total Hip Replacement, Bilateral: Arthroscopy Knee Other Surgeries: Yes: Tubal Ligation, Other (Perineal abscess I&D and debridement). No: Pacemaker Amputation: Yes Fractures: Yes (left arm) - *Social History Educational Level: Attended High School Smoking Status: Never smoker Alcohol Intake: never Substance Use Type: denies use *Occupational Status:: retired Housing: house Household Members: spouse *Travel in the last 8 weeks: None - Psychiatric History Expresses thoughts of harming self/others: None Suicide Plan Description: No Plan Family Hx:: Diabetes, Heart Attack, Hypertension, Stroke Meds Home Medications Medication Instructions Recorded Confirmed Type Aspirin [Ecotrin] 81 mg PO DAILY 10/31/18 02/21/19 History Cholecalciferol (Vitamin D3) 2,000 unit PO DAILY 10/31/18 02/21/19 History [Vitamin D3 1,000 Unit Cap] Metoprolol Succinate 25 mg PO BID 10/31/18 02/21/19 History Omeprazole [Omeprazole 20mg 20 mg PO DAILY 10/31/18 02/21/19 History Capsule] milk thistle 150 mg capsule 150 mg PO DAILY 11/01/18 02/21/19 History Ascorbate Calcium [Vitamin C] 500 mg PO DAILY 01/08/19 02/21/19 History Ferrous Sulfate [Ferrous Sulfate 325 mg PO DAILY 01/08/19 02/21/19 History 325mg Tablet] Gabapentin [Gabapentin 100mg Cap] 200 mg PO HS 01/08/19 02/21/19 History Lisinopril [Lisinopril 5mg 5 mg PO DAILY 01/08/19 02/21/19 History Tablet] Biotin 1 mg PO DAILY 02/21/19 02/21/19 History Fluticasone Propionate [Flonase 1 spray INTRANASAL DAILY 02/21/19 02/21/19 History Allergy Relief NS] Meloxicam 7.5 mg PO DIRECTED 02/21/19 02/21/19 History Non Formulary [Pt's Own Medication] 1 each PO DAILY 02/21/19 02/21/19 History Allergies Allergy/AdvReac Type Severity Reaction Status Date / Time acetaminophen Allergy Severe Anaphylaxis Verified 02/21/19 01:54 [From Darvocet-N] propoxyphene Allergy Severe Anaphylaxis Verified 02/21/19 01:54 [From Darvocet-N] NSAIDS (Non-Steroidal AdvReac Verified 02/21/19 01:54 Anti-Inflamma Review of Systems - Review of Systems Review of systems:: pertinent systems reviewed and negative unless documented below - Constitutional Reports lack of energy, Reports weakness - *Cardiovascular Reports shortness of breath (At times but none today), Reports irregular heart rhythm, Reports fast heart rate - *Musculoskeletal Reports body aches - *Neurologic Reports frequent falls, Reports weakness, Denies localized weakness, Denies seizure-like activity Exam Vital signs and Labs for Last 24 Hours: Temp Pulse Resp BP Pulse Ox 98.9 F 100 H 16 95/50 L 95 02/23/19 12:38 02/23/19 12:38 02/23/19 12:38 02/23/19 12:38 02/23/19 12:25 Laboratory Results - last 24 hr 02/22/19 11:08: Total Counted 100, Neutrophils % (Manual) 76, Band Neutrophils % 17.0 H, Lymphocytes % (Manual) 5 L, Monocytes % (Manual) 1 L, Myelocytes % 1, Platelet Estimate Normal, Hypochromasia 1+ 02/22/19 22:10: Urine Color Yellow, Urine Appearance Clear, Urine pH 5.5, Ur Specific [place] 1.010, Urine Protein 1+, Urine Glucose (UA) Negative, Urine Ketones Negative, Urine Blood 3+, Urine Nitrate Negative, Urine Bilirubin Negative, Urine Urobilinogen 0.2, Ur Leukocyte Esterase Trace, Urine RBC 5-10, Urine WBC 3-5, Ur Squamous Epith Cells 5-10, Urine Bacteria 1+ 02/23/19 10:23: Sodium 132 L, Potassium 3.5, Chloride 101, Carbon Dioxide 21, Anion Gap 13.5, BUN 34 H, Creatinine 1.71 H, Estimated Creat Clear 26, Estimated GFR 28 L, Est GFR ( Amer) 34 L, Glucose 112 H, Calcium 8.7 I & O for Last 24 hours: Intake & Output 02/20/19 02/21/19 02/22/19 02/23/19 23:59 23:59 23:59 23:59 Intake Total 2263 / 2263 3387 / 3387 2074 Output Total 800 / 800 550 / 550 Balance 1463 / 1463 2837 / 2837 2074 Weight 142 lb 3 oz 142 lb 2.994 oz 156 lb 5 oz Microbiology Reports for the Last 24 Hours: Microbiology 02/21/19 02:06 Blood Blood Culture - Preliminary 02/23/19 12:30 Genital - Final Not Reportable 02/23/19 12:30 Genital - Final Not Reportable 02/23/19 12:30 Genital - Final Not Reportable 02/23/19 12:30 Genital - Final Not Reportable 02/23/19 12:30 Genital - Final Not Reportable 02/21/19 02:06 Blood Blood Culture - Preliminary 02/23/19 03:24 Buttock - Abscess Gram Stain - Final 02/21/19 02:18 Urine,Clean Catch Urine Culture - Final Escherichia coli 02/22/19 00:22 Urine,[place] Urine Culture - Preliminary NO GROWTH AFTER 24 HOURS - Constitutional no acute distress, average body habitus - *Routine HEENT Exam Head: Present: normocephalic, atraumatic Eye: Present: EOMI, PERRL ENT: Present: mucous membranes moist - *Routine Neck Exam Present: supple, full ROM, normal carotid upstroke. Absent: JVD, carotid bruit, lymphadenopathy - *Routine Respiratory Exam Present: CTA bilaterally - *Routine Cardiovascular Exam Present: RRR, Normal S1, Normal S2. Absent: murmur - *Routine Abdominal Exam Present: soft, normoactive bowel sounds. Absent: tenderness, distended - *Routine Extremities Exam Present: full ROM, pulses intact, normal capillary refill. Absent: cyanosis, clubbing, edema - *Routine Skin Exam Present: intact, warm. Absent: erythema, rash - *Routine Neurological Exam Present: alert, oriented X3, CN II-XII intact. Absent: sensory deficit, motor deficit - Routine Psychiatric Exam Present: normal affect, normal thought process - Detailed Eye Exam Eyelids: Left normal inspection Assessment and Plan (1) Atrial fibrillation with RVR Current visit: Yes Status: Acute Category: Medical Code(s): I48.91 - Unspecified atrial fibrillation (2) Sinus tachycardia Current visit: Yes Status: Acute Category: Medical Code(s): R00.0 - Tachycardia, unspecified (3) Shortness of breath Current visit: Yes Status: Chronic Category: Medical Code(s): R06.02 - Shortness of breath (4) UTI (urinary tract infection) Current visit: Yes Status: Acute Qualifiers: Urinary tract infection type: site unspecified Hematuria presence: without hematuria Qualified Code(s): N39.0 - Urinary tract infection, site not specified Category: Medical Code(s): N39.0 - Urinary tract infection, site not specified (5) Elevated erythrocyte sedimentation rate Current visit: Yes Status: Acute Category: Medical Code(s): R70.0 - Elevated erythrocyte sedimentation rate (6) Neuropathy Current visit: No Status: Acute Category: Medical Code(s): G62.9 - Polyneuropathy, unspecified (7) CKD (chronic kidney disease) stage 3, GFR 30-59 ml/min Current visit: Yes Status: Acute Category: Medical Code(s): N18.3 - Chronic kidney disease, stage 3 (moderate) (8) SIRS (systemic inflammatory response syndrome) Current visit: Yes Status: Acute Category: Medical Code(s): R65.10 - Systemic inflammatory response syndrome (SIRS) of non-infectious origin without acute organ dysfunction (9) Acute delirium Current visit: Yes Status: Acute Category: Medical Code(s): R41.0 - Disorientation, unspecified - Assessment and plan all Dx Assessment and Plan for all problems:: Plan: 1. The patient was admitted to the hospital for an abscess in the perineal area. She did undergo I&D and debridement today. Prior to the beginning of the procedure the patient did go into atrial fibrillation with RVR. Her heart rate was around 180. She did spontaneously convert on her own. She remains in sinus rhythm at this time although she is tachycardic. 2. We will restart her Toprol-XL 25 mg p.o. twice daily for better heart rate control per Dr. Bacon. 3. The patient is somewhat hypotensive. However this is most likely secondary to the anesthesia she received. Dr. Bacon wants to restart her Toprol at this time as her blood pressure should only be very minimally affected. 4. We will get an echocardiogram to evaluate her LV function. 5. We will get a troponin. 6. As long as her echocardiogram and troponin are normal, will continue with medical management of this patient. 7. Her LDL goal is less than 100. 8. We will get a CBC, BMP and lipid panel in the morning. 9. Further recommendations will be made pending the patient's response to treatment and the results of her echocardiogram. Thank you for the opportunity to help participate in the care of this patient.
[2019-02-24 05:59] LABS: Basophils # 0.1 K/mm3 (0-0.2); Basophils % 0.2 % (0.1-2.0); Eosinophils % 0.1 % (0.1-12.0); Hematocrit 30.7 % (37.0-47.0); Hemoglobin 9.1 g/dL (12.2-16.2); Lymphocytes # 3.1 K/mm3 (0.7-4.5); Mean Corpuscular HGB Conc 29.7 g/dL (31.8-35.4); Mean Corpuscular Volume 93.9 fl (81-99); Mean Platelet Volume 8.4 fl (7.4-10.4); Monocytes # 1.6 K/mm3 (0.1-1.0); Monocytes % 3.7 % (1.7-9.3); Neutrophils # 39.2 K/mm3 (1.8-7.8); Neutrophils % 89.1 % (37.0-80.0); Platelet Count 429 K/mm3 (142-424); Red Blood Count 3.27 M/mm3 (4.20-5.40); Red Cell Distribution Width 15.1 % (11.5-17.5)
[2019-02-24 06:09] LABS: Anion Gap 17.6 mEq/L (5-15); Calcium 8.5 mg/dL (8.5-10.1); Chol/HDL Ratio 9.3 (1-3.5)
--- NOTE | 2019-02-24 07:31 | Progress Note ---
Subjective Date: 02/24/19 Time: 07:25 Principal diagnosis: PAF, perineal infection Interval history: 84 yo WF in bed. Complaints of neck pain due to arthritis. Denies any chest pain. Telemetry is sinus rhythm. Echo yesterday reportedly shows normal LVEF without pericardial effusion or significant valve disease. Exam Vital signs and Labs for Last 24 Hours: Temp Pulse Resp BP Pulse Ox 98.3 F 93 H 18 115/52 L 89 L 02/24/19 04:00 02/24/19 04:00 02/24/19 04:00 02/24/19 04:00 02/24/19 04:00 Laboratory Results - last 24 hr 02/23/19 10:23: Sodium 132 L, Potassium 3.5, Chloride 101, Carbon Dioxide 21, Anion Gap 13.5, BUN 34 H, Creatinine 1.71 H, Estimated Creat Clear 26, Estimated GFR 28 L, Est GFR ( Amer) 34 L, Glucose 112 H, Calcium 8.7 02/23/19 14:55: Troponin I < 0.02 02/24/19 05:22: WBC 44.0 H* D, RBC 3.27 L, Hgb 9.1 L, Hct 30.7 L, MCV 93.9, MCH 27.9, MCHC 29.7 L, RDW 15.1, Plt Count 429 H D, MPV 8.4, Neut % (Auto) 89.1 H, Lymph % (Auto) 7.0 L, [place] % (Auto) 3.7, Eos % (Auto) 0.1, Baso % (Auto) 0.2, Neut # (Auto) 39.2 H, Lymph # (Auto) 3.1, [place] # (Auto) 1.6 H, Eos # (Auto) 0.0, Baso # (Auto) 0.1 02/24/19 05:22: Sodium 134 L, Potassium 3.6, Chloride 103, Carbon Dioxide 17 L, Anion Gap 17.6 H, BUN 38 H, Creatinine 1.74 H, Estimated Creat Clear 27, Estimated GFR 28 L, Est GFR ( Amer) 34 L, Glucose 98, Calcium 8.5, Triglycerides 107, Cholesterol 56 L, LDL Cholesterol 29, VLDL Cholesterol 21, HDL Cholesterol 6 L, Cholesterol/HDL Ratio 9.3 H I & O for Last 24 hours: Intake & Output 02/21/19 02/22/19 02/23/19 02/24/19 11:59 11:59 11:59 11:59 Intake Total 1110 / 1110 2874 / 2874 2941 / 2941 2438 / 2438 Output Total 275 / 275 775 / 775 300 / 300 200 / 200 Balance 835 / 835 2099 / 2099 2641 / 2641 2238 / 2238 Weight 142 lb 3 oz 142 lb 2.994 oz 156 lb 5 oz 165 lb Microbiology Reports for the Last 24 Hours: Microbiology 02/23/19 03:24 Buttock - Abscess Gram Stain - Final 02/23/19 03:24 Buttock - Abscess Wound Culture - Preliminary NO GROWTH AFTER 24 HOURS 02/22/19 00:22 Urine,[place] Urine Culture - Final NO GROWTH AFTER 48 HOURS 02/22/19 01:55 Blood Blood Culture - Preliminary NO GROWTH AFTER 48 HOURS 02/22/19 01:55 Blood Blood Culture - Preliminary NO GROWTH AFTER 48 HOURS 02/23/19 12:30 Genital Gram Stain - Final 02/21/19 02:06 Blood Blood Culture - Preliminary 02/23/19 12:30 Genital - Final Not Reportable 02/23/19 12:30 Genital - Final Not Reportable 02/23/19 12:30 Genital - Final Not Reportable 02/23/19 12:30 Genital - Final Not Reportable 02/23/19 12:30 Genital - Final Not Reportable 02/21/19 02:06 Blood Blood Culture - Preliminary 02/21/19 02:18 Urine,Clean Catch Urine Culture - Final Escherichia coli - *Routine HEENT Exam Head: Present: normocephalic Eye: Present: EOMI, PERRL ENT: Present: mucous membranes moist - *Routine Cardiovascular Exam Present: RRR, rubs. Absent: murmur, gallop - *Routine Extremities Exam Absent: edema, calf tenderness - *Routine Neurological Exam Present: alert, oriented X3, moving all extremities Progress Note: A&P (1) Cervical spondylosis with radiculopathy Status: Acute Current Visit: Yes (2) UTI (urinary tract infection) Status: Acute Current Visit: Yes (3) Elevated erythrocyte sedimentation rate Status: Acute Current Visit: Yes (4) Neuropathy Status: Acute Current Visit: No (5) CKD (chronic kidney disease) stage 3, GFR 30-59 ml/min Status: Acute Current Visit: Yes (6) Foraminal stenosis of cervical region Status: Acute Current Visit: Yes (7) Cervical facet joint syndrome Status: Acute Current Visit: Yes (8) Cervical stenosis of spinal canal Status: Acute Current Visit: Yes (9) SIRS (systemic inflammatory response syndrome) Status: Acute Current Visit: Yes (10) Acute delirium Status: Acute Current Visit: Yes (11) Necrotizing fasciitis Status: Acute Current Visit: Yes (12) Pericardial friction rub present Status: Acute Current Visit: Yes Assessment and Plan for All Diagnoses:: 1. PAF, now NSR on low dose beta alysia. 2. New pericardial friction rub. No effusion noted on echo. Elevated ESR and CRP with markedly elevated WBC in post op patient. Will recommend beginning IV steroids for possible pericarditis. 3. Consider transfer to tertiary center for further treatment due to multiple organ problems (surgical, renal, cardiac in a diabetic patient).
--- NOTE | 2019-02-24 07:39 | Progress Note ---
Subjective Narrative: Patient has had some increasing pain and discomfort from her surgical site wound. Her antibiotics have been changed to Zosyn and vancomycin. She had minuscule urinary output over the past 12 hours. Her white blood cell count has increased to 44,000. Her CT scan reveals some gas in the contralateral perineum. Exam Vital signs and Labs for Last 24 Hours: Temp Pulse Resp BP Pulse Ox 98.3 F 93 H 18 115/52 L 89 L 02/24/19 04:00 02/24/19 04:00 02/24/19 04:00 02/24/19 04:00 02/24/19 04:00 Laboratory Results - last 24 hr 02/23/19 10:23: Sodium 132 L, Potassium 3.5, Chloride 101, Carbon Dioxide 21, Anion Gap 13.5, BUN 34 H, Creatinine 1.71 H, Estimated Creat Clear 26, Estimated GFR 28 L, Est GFR ( Amer) 34 L, Glucose 112 H, Calcium 8.7 02/23/19 14:55: Troponin I < 0.02 02/24/19 05:22: WBC 44.0 H* D, RBC 3.27 L, Hgb 9.1 L, Hct 30.7 L, MCV 93.9, MCH 27.9, MCHC 29.7 L, RDW 15.1, Plt Count 429 H D, MPV 8.4, Neut % (Auto) 89.1 H, Lymph % (Auto) 7.0 L, [place] % (Auto) 3.7, Eos % (Auto) 0.1, Baso % (Auto) 0.2, Neut # (Auto) 39.2 H, Lymph # (Auto) 3.1, [place] # (Auto) 1.6 H, Eos # (Auto) 0.0, Baso # (Auto) 0.1 02/24/19 05:22: Sodium 134 L, Potassium 3.6, Chloride 103, Carbon Dioxide 17 L, Anion Gap 17.6 H, BUN 38 H, Creatinine 1.74 H, Estimated Creat Clear 27, Estimated GFR 28 L, Est GFR ( Amer) 34 L, Glucose 98, Calcium 8.5, Triglycerides 107, Cholesterol 56 L, LDL Cholesterol 29, VLDL Cholesterol 21, HDL Cholesterol 6 L, Cholesterol/HDL Ratio 9.3 H I & O for Last 24 hours: Intake & Output 02/21/19 02/22/19 02/23/19 02/24/19 11:59 11:59 11:59 11:59 Intake Total 1110 / 1110 2874 / 2874 2941 / 2941 2438 / 2438 Output Total 275 / 275 775 / 775 300 / 300 200 / 200 Balance 835 / 835 2099 / 2099 2641 / 2641 2238 / 2238 Weight 142 lb 3 oz 142 lb 2.994 oz 156 lb 5 oz 165 lb Microbiology Reports for the Last 24 Hours: Microbiology 02/23/19 03:24 Buttock - Abscess Gram Stain - Final 02/23/19 03:24 Buttock - Abscess Wound Culture - Preliminary NO GROWTH AFTER 24 HOURS 02/22/19 00:22 Urine,[place] Urine Culture - Final NO GROWTH AFTER 48 HOURS 02/22/19 01:55 Blood Blood Culture - Preliminary NO GROWTH AFTER 48 HOURS 02/22/19 01:55 Blood Blood Culture - Preliminary NO GROWTH AFTER 48 HOURS 02/23/19 12:30 Genital Gram Stain - Final 02/21/19 02:06 Blood Blood Culture - Preliminary 02/23/19 12:30 Genital - Final Not Reportable 02/23/19 12:30 Genital - Final Not Reportable 02/23/19 12:30 Genital - Final Not Reportable 02/23/19 12:30 Genital - Final Not Reportable 02/23/19 12:30 Genital - Final Not Reportable 02/21/19 02:06 Blood Blood Culture - Preliminary 02/21/19 02:18 Urine,Clean Catch Urine Culture - Final Escherichia coli - *Routine Skin Exam Comments: Her wound is dressed and relatively clean. She does have some induration in the contralateral medial gluteal region with significant edema of the perineum. She has market tenderness. Progress Note: A&P (1) Cervical spondylosis with radiculopathy Status: Acute Current Visit: Yes (2) UTI (urinary tract infection) Status: Acute Current Visit: Yes (3) Elevated erythrocyte sedimentation rate Status: Acute Current Visit: Yes (4) Neuropathy Status: Acute Current Visit: No (5) CKD (chronic kidney disease) stage 3, GFR 30-59 ml/min Status: Acute Current Visit: Yes (6) Foraminal stenosis of cervical region Status: Acute Current Visit: Yes (7) Cervical facet joint syndrome Status: Acute Current Visit: Yes (8) Cervical stenosis of spinal canal Status: Acute Current Visit: Yes (9) SIRS (systemic inflammatory response syndrome) Status: Acute Current Visit: Yes (10) Acute delirium Status: Acute Current Visit: Yes (11) Necrotizing fasciitis Status: Acute Current Visit: Yes (12) Pericardial friction rub present Status: Acute Current Visit: Yes Assessment and Plan for All Diagnoses:: Patient has systemic inflammatory response syndrome with some organ dysfunction secondary to profound necrotizing infection of the perineum likely from issue rectal abscess. She does have potentially some ongoing infection and potential need for additional debridement. In addition, she has findings on clinical examination possibly consistent with pericarditis. Overall her prognosis is poor and morbidity and mortality is quite high. Given her overall clinical condition and nature of her problem I would recommend transfer to tertiary facility for definitive care.
--- NOTE | 2019-02-24 09:10 | Discharge Summary ---
General - General Admission date:: 02/21/19 Discharge date: 02/24/19 HPI HPI: A 4-year-old female patient sitting up in bed this morning resting quietly. Reports she is feeling okay. Nursing reports she was medicated for pain within the hour patient explained to patient concern for her medical condition, she agrees to be transferred to higher level of care. in room and agrees also. this wf with altered mental status and inc weakness and dec mobility with dec po intake dev fever and was brought to ed for evaal -pt was found to have uti and sirs and was admitted for ivf and abx - cultures pending - also pt has element of delerium as she is confused and dec mobility - Patient has had some increasing pain and discomfort from her surgical site wound. Her antibiotics have been changed to Zosyn and vancomycin. She had minuscule urinary output over the past 12 hours. Her white blood cell count has increased to 44,000. she had a CT scan reveals some gas in the contralateral perineum (Per Dr. Gray). Hospital Course Hospital Course: 84-year-old white female patient presents to the emergency room with several days complaints of altered mental status and dysuria. She was admitted for UTI and IV antibiotics were initiated. During her course of stay it was noted that she had a perineal wound with purulent drainage that was foul-smelling, surgical consult consult was obtained. An I&D was performed by surgery there was a perirectal abscess which had progressed to an rectal abscess with sepsis and Sirs. Surgery determined it was unclear to the etiology or definitive extent of the infection. resident inspector recommendations are Sirs with some organ dysfunction secondary to profound necrotizing infection of the peritoneum likely from the rectal abscess. They also believe there is ongoing infection and need for additional debridement. During her procedure she went into A. fib with RVR, converted back to sinus rhythm and has been since. Her overall prognosis is poor and morbidity and mortality is quite high they have also recommended transfer to tertiary facility for definitive care. This morning white count is 44,000 H&H is 9.1 and 30.7. Blood cultures x2 have been negative, currently awaiting wound cultures. Currently waiting discharge to higher level of care. Spoke to Dr. Toledo, patient has been accepted and they will call with instructions. Objective Vital signs: Temp Pulse Resp BP Pulse Ox 99.5 F 92 H 18 119/59 L 95 02/24/19 08:00 02/24/19 08:00 02/24/19 08:00 02/24/19 08:00 02/24/19 08:00 moderate distress, obese - *Routine HEENT Exam Head: Present: normocephalic Eye: Present: EOMI, PERRL, normal accommodation ENT: Present: mucous membranes dry - *Routine Neck Exam Present: supple, full ROM. Absent: JVD, tracheal deviation - *Routine Respiratory Exam Absent: accessory muscle use - *Routine Cardiovascular Exam Present: RRR, murmur - *Routine Abdominal Exam Present: soft, normoactive bowel sounds. Absent: tenderness - *Routine Extremities Exam Present: full ROM, pulses intact. Absent: edema, calf tenderness - Routine Back/Spine/Pelvis Exam Back/Spine: Present: full ROM. Absent: pain with flexion - *Routine Skin Exam Present: warm, wounds. Absent: jaundice - *Routine Neurological Exam Present: alert, oriented X3, CN II-XII intact. Absent: motor deficit - Routine Psychiatric Exam Present: normal affect, normal thought process. Absent: auditory hallucinations, tactile hallucinations Results Labs on day of discharge: Labs from last 24 hours 02/24/19 02/24/19 02/23/19 05:22 05:22 14:55 WBC 44.0 H* D RBC 3.27 L Hgb 9.1 L Hct 30.7 L MCV 93.9 MCH 27.9 MCHC 29.7 L RDW 15.1 Plt Count 429 H D MPV 8.4 Neut % (Auto) 89.1 H Lymph % (Auto) 7.0 L [place] % (Auto) 3.7 Eos % (Auto) 0.1 Baso % (Auto) 0.2 Neut # (Auto) 39.2 H Lymph # (Auto) 3.1 [place] # (Auto) 1.6 H Eos # (Auto) 0.0 Baso # (Auto) 0.1 Sodium 134 L Potassium 3.6 Chloride 103 Carbon Dioxide 17 L Anion Gap 17.6 H BUN 38 H Creatinine 1.74 H Estimated Creat Clear 27 Estimated GFR 28 L Est GFR ( Amer) 34 L Glucose 98 Calcium 8.5 Troponin I < 0.02 Triglycerides 107 Cholesterol 56 L LDL Cholesterol 29 VLDL Cholesterol 21 HDL Cholesterol 6 L Cholesterol/HDL Ratio 9.3 H 02/23/19 10:23 WBC RBC Hgb Hct MCV MCH MCHC RDW Plt Count MPV Neut % (Auto) Lymph % (Auto) [place] % (Auto) Eos % (Auto) Baso % (Auto) Neut # (Auto) Lymph # (Auto) [place] # (Auto) Eos # (Auto) Baso # (Auto) Sodium 132 L Potassium 3.5 Chloride 101 Carbon Dioxide 21 Anion Gap 13.5 BUN 34 H Creatinine 1.71 H Estimated Creat Clear 26 Estimated GFR 28 L Est GFR ( Amer) 34 L Glucose 112 H Calcium 8.7 Troponin I Triglycerides Cholesterol LDL Cholesterol VLDL Cholesterol HDL Cholesterol Cholesterol/HDL Ratio Preliminary micro results at discharge 02/23/19 03:24 Wound Culture - Preliminary Buttock - Abscess NO GROWTH AFTER 24 HOURS 02/22/19 01:55 Blood Culture - Preliminary Blood NO GROWTH AFTER 48 HOURS 02/22/19 01:55 Blood Culture - Preliminary Blood NO GROWTH AFTER 48 HOURS 02/21/19 02:06 Blood Culture - Preliminary Blood 02/21/19 02:06 Blood Culture - Preliminary Blood DS: Diagnosis - Discharge Diagnosis (1) Cervical spondylosis with radiculopathy Status: Acute (2) UTI (urinary tract infection) Start date: 02/24/19 Status: Acute (3) Elevated erythrocyte sedimentation rate Status: Acute (4) Neuropathy Status: Acute (5) CKD (chronic kidney disease) stage 3, GFR 30-59 ml/min Status: Acute (6) Foraminal stenosis of cervical region Status: Acute (7) Cervical facet joint syndrome Status: Acute (8) Cervical stenosis of spinal canal Status: Acute (9) SIRS (systemic inflammatory response syndrome) Status: Acute (10) Acute delirium Status: Acute (11) Necrotizing fasciitis Status: Acute (12) Pericardial friction rub present Status: Acute Discharge Plan - Patient Discharge Instructions ACTIVITY: Bed rest DIET: continue same diet Patient Instructions: DI for Escherichia Coli Infection, Urinary Tract Infection, Chronic Renal Failure, DI for Urinary Tract Infection (UTI), DI for Multiple Drug-resistant Organism (MDRO) Infection - Follow up Plan Disposition: Xfer Other Home Medications: Home Medications Medication Instructions Recorded Confirmed Type Aspirin [Ecotrin] 81 mg PO DAILY 10/31/18 02/21/19 History Cholecalciferol (Vitamin D3) 2,000 unit PO DAILY 10/31/18 02/21/19 History [Vitamin D3 1,000 Unit Cap] Metoprolol Succinate 25 mg PO BID 10/31/18 02/21/19 History Omeprazole [Omeprazole 20mg 20 mg PO DAILY 10/31/18 02/21/19 History Capsule] milk thistle 150 mg capsule 150 mg PO DAILY 11/01/18 02/21/19 History Ascorbate Calcium [Vitamin C] 500 mg PO DAILY 01/08/19 02/21/19 History Ferrous Sulfate [Ferrous Sulfate 325 mg PO DAILY 01/08/19 02/21/19 History 325mg Tablet] Gabapentin [Gabapentin 100mg Cap] 200 mg PO HS 01/08/19 02/21/19 History Lisinopril [Lisinopril 5mg 5 mg PO DAILY 01/08/19 02/21/19 History Tablet] Biotin 1 mg PO DAILY 02/21/19 02/21/19 History Fluticasone Propionate [Flonase 1 spray INTRANASAL DAILY 02/21/19 02/21/19 History Allergy Relief NS] Meloxicam 7.5 mg PO DIRECTED 02/21/19 02/21/19 History Non Formulary [Pt's Own Medication] 1 each PO DAILY 02/21/19 02/21/19 History Prescriptions/Medication Reconciliation: Continued milk thistle 150 mg capsule 150 mg PO DAILY Metoprolol Succinate 25 mg PO BID Omeprazole [Omeprazole 20mg Capsule] 20 mg PO DAILY Cholecalciferol (Vitamin D3) [Vitamin D3 1,000 Unit Cap] 2,000 unit PO DAILY Ferrous Sulfate [Ferrous Sulfate 325mg Tablet] 325 mg PO DAILY Lisinopril [Lisinopril 5mg Tablet] 5 mg PO DAILY Ascorbate Calcium [Vitamin C] 500 mg PO DAILY Gabapentin [Gabapentin 100mg Cap] 200 mg PO HS Biotin 1 mg PO DAILY Non Formulary [Pt's Own Medication] 1 each PO DAILY Aspirin [Ecotrin] 81 mg PO DAILY Fluticasone Propionate [Flonase Allergy Relief NS] 1 spray INTRANASAL DAILY Meloxicam 7.5 mg PO DIRECTED - Problem Reconciliation Problems Reviewed?: Yes
--- NOTE | 2019-02-24 09:58 | Cardiology Report ---
PROCEDURE: 2-D M-mode and color Doppler study INDICATIONS FOR THE TEST: Chest pain COPD Heart Murmur Tobacco Smoking Palpitations+ Fatigue Syncope Edema Hypertension+Diabetes Mellitus+ Rheumatic Fever SOB+LOPEZ Obesity Hyperlipidemia Family History HD Additional History GERD, sinus tach PATIENT INFORMATION HEIGHT: 62 WEIGHT: 152 GENDER: Female B/P: 137/76 2-D/M-MODE INTERPRETATION: 2-D MEASUREMENTS OBSERVED VALUES IN CMS Right Ventricular Dimension (RVDd) 1.7 Interventricular Septum (Thickness)(IVsd) 1.2 Left Ventricular Internal Dimensions(LVIDd) 4.0 Left Ventricular Posterior Wall (Thickness)(LVPWd) 1.0 Aortic Root 3.0 Aortic Cusp Separation 1.8 Left Atrial Dimensions (LAD) 3.8 2D 1. Left atrium is mildly enlarged, left ventricle is normal size, mild concentric left ventricular hypertrophy, visually estimated ejection fraction 55% with no regional wall motion abnormality. 2. The right atrium and right ventricle are mildly enlarged with normal contractility. 3. The aortic valve is thickened and calcified leaflet continue to display mobility. 4. Mitral valve has dense mitral annular calcification which extends and both anterior and posterior mitral leaflet. 5. The tricuspid valve is grossly normal. 6. The pulmonic valve is poorly visualized. 7. No significant pericardial effusion noted DOPPLER INTERROGATION: Doppler interrogation of the aortic, mitral and tricuspid valvular presence of mild aortic, mild mitral and moderate tricuspid regurgitation, calculated right ventricular systolic pressure is 52 mmHg consistent with moderate pulmonary hypertension, grade 1 diastolic dysfunction seen with tissue Doppler evidence of raised left atrial pressure, inferior vena cava is not well visualized. CONCLUSION: 1. Biatrial enlargement, normal left ventricular size, mild concentric left ventricular hypertrophy, visually estimated ejection fraction 55% with no regional wall motion abnormality, grade 1 diastolic dysfunction seen with tissue Doppler evidence of raised left atrial pressure. 2. Mildly enlarged right ventricle with normal contractility. 3. Mild aortic, mild mitral and moderate tricuspid regurgitation, calculated right ventricular systolic pressure is 52 mmHg consistent with moderate pulmonary hypertension. Inferior vena cava is not visualized. 4. No significant pericardial effusion noted.
[2019-02-24 14:03] LABS: Anion Gap 14.8 mEq/L (5-15); Calcium 8.6 mg/dL (8.5-10.1)
[2019-02-24 15:37] LABS: Hypochromasia 2+; Lymphocytes % 6 % (10-50); Myelocytes % 1 (0-1); Neutrophils % 86 % (42-76); Total Cells Counted 100
--- NOTE | 2019-02-25 13:55 | Cardiology Report ---
PROCEDURE: INDICATIONS FOR THE TEST: Chest pain COPD Heart Murmur Tobacco Smoking Palpitations Fatigue Syncope Edema Hypertension Diabetes Mellitus Rheumatic Fever SOB LOPEZ Obesity Hyperlipidemia Family History HD Additional History FRICTION RUB, LIMITED ECHO FOR EFFUSION CHECK PATIENT INFORMATION HEIGHT:62 WEIGHT:152 GENDER: Female B/P:120/75 2-D/M-MODE INTERPRETATION: 2-D MEASUREMENTS OBSERVED VALUES IN CMS Right Ventricular Dimension (RVDd) Interventricular Septum (Thickness)(IVsd) Left Ventricular Internal Dimensions(LVIDd) Left Ventricular Posterior Wall (Thickness)(LVPWd) Aortic Root Aortic Cusp Separation Left Atrial Dimensions (LAD) 2D 1. Left atrium is mildly enlarged, left ventricle is normal size, visually estimated ejection fraction 55% with no regional wall motion abnormality, there is abnormal septal motion. 2. The right atrium and right ventricle are mildly enlarged with normal contractility. 3. The aortic valve is thickened and calcified leaflet continue to display mobility. 4. Mitral valve has mitral annular calcification. 5. The tricuspid valve is grossly normal. 6. Pulmonic valve is poorly visualized. 7. No significant pericardial effusion noted. DOPPLER INTERROGATION: No Doppler performed CONCLUSION: 1. Normal left ventricular size, visually estimated ejection fraction 55% with no regional wall motion abnormality, there is abnormal septal motion. 2. No significant pericardial effusion noted.
== END 2019-02-24 15:15 | disposition short-term general hospital (02) | DRG 987 ==
LOC: ICU 01:46 → ER 01:46 → ICU 04:44 → 2ND 15:14 → ICU 02-23 12:49
PROVIDERS: ADMIT Emergency Medicine; ATTEND Emergency Medicine
CPT/HCPCS: 36415; 70450; 71010; 71045; 72125; 72170; 74176; 80048; 80053; 80061; 81001; 82550; 83605; 84484; 85007; 85025; 85651; 86140; 87040; 87070; 87075; 87077; 87086; 87088; 87186; 87205; 93005; 93306; 93308; 96365; 96367; 99285; J2405; J2543; J3370